=== PATIENT | female | born 1955 ===

== ENCOUNTER 2016-10-22 09:54 | Emergency (ER) | payer MEDICARE ==
[2016-10-22 09:54] VITALS: BMI 33.9
[2016-10-22 10:03] VITALS: TEMP 98.2
--- NOTE | 2016-10-22 12:03 | C.PDOC ---
History Of Present Illness 61 year old female presents to the ED with complaints of right thigh discomfort for the past 3-4 days. Patient states her right thigh feels hot and subjectively swollen and notes the pain is worse at night. Denies injury, fall, fever, rash, or any other complaints at this time. Chief Complaint (Nursing): Lower Extremity Problem/Injury History Per: Patient History/Exam Limitations: no limitations Onset/Duration Of Symptoms: Days Current Symptoms Are (Timing): Still Present Severity: Mild Past Medical History Reviewed: Historical Data, Nursing Documentation, Vital Signs Vital Signs: Last Vital Signs Temp 98.2 F 10/22/16 10:02 Pulse 57 L 10/22/16 12:58 Resp 17 10/22/16 12:58 BP 152/84 H 10/22/16 12:58 Pulse Ox 99 10/22/16 14:35 - Medical History PMH: Anxiety, Arthritis (KNEES AND HANDS), Depression, HTN Surgical History: Endoscopy - [facility] Procedures RADICAL EXCIS SKIN LES (01/29/14) Family History: States: Unknown Family Hx - Social History Hx Tobacco Use: No Hx Alcohol Use: No Hx Substance Use: No - Immunization History Hx Tetanus Toxoid Vaccination: No Hx Influenza Vaccination: No Hx Pneumococcal Vaccination: No Review Of Systems Except As Marked, All Systems Reviewed And Found Negative. Constitutional: Negative for: Fever, Chills Musculoskeletal: Positive for: Leg Pain (+Right thigh discomfort). Negative for : Back Pain Skin: Negative for: Rash Neurological: Negative for: Weakness, Numbness Physical Exam - Physical Exam Appears: Non-toxic, No Acute Distress Skin: Normal Color, Warm, Dry Head: Atraumatic, Normacephalic Eye(s): bilateral: Normal Inspection Oral Mucosa: Moist Chest: Symmetrical Respiratory: No Accessory Muscle Use Back: No Vertebral Tenderness, No Paraspinal Tenderness Extremity: Normal ROM, Tenderness (+Slight tenderness to the right upper thigh) , No Calf Tenderness, Capillary Refill (< 2 seconds), No Deformity, No Swelling , Other (+Varicose vains to the right leg. ) Extremity: Right: Other (+Post-op scar to the right lower leg for unknown vascular issues.) Pulses: Left Dorsalis Pedis: Normal, Right Dorsalis Pedis: Normal Neurological/Psych: Oriented x3, Normal Speech, Normal Cognition, Normal Motor, Normal Sensation ED Course And Treatment O2 Sat by Pulse Oximetry: 99 (Room air) Pulse Ox Interpretation: Normal - Other Rad LS Spine AP/LAT X-Ray: Viewed By Me, Read By Radiologist Interpretation: Accession No. : [id number]. Patient Name / ID : SEPIDEH PAREDES / [id number]. Exam Date : 10/22/2016 10:38:09 ( Approved ). Study Comment : Sex / Age : F / 61Y. Creator : Tete Vilchis MD. Dictator : Tete Vilchis MD. House Servant : Internal Control Manager : Tete Vilchis MD. Approver2 : Report Date : 10/22/2016 14:03:50. My Comment : . PROCEDURE: Radiographs of the Lumbar Spine. HISTORY: Right thigh pain. COMPARISON: No prior. FINDINGS: BONES: There is normal alignment of the lumbar vertebral bodies. Lumbar lordosis is maintained. Vertebral bodies are normal in height. There is no acute fracture, spondylolysis or spondylolisthesis. Bone mineralization is normal. DISC SPACES: There is mild multilevel degenerative disc disease with anterior spurring, reduced disc heights and multilevel facet arthropathy, worse at L5-S1. OTHER FINDINGS: There are atherosclerotic aortoiliac calcifications. There are no pathologic soft tissue calcifications. Both sacroiliac joints are normal. IMPRESSION: No acute fracture, spondylolysis or spondylolisthesis. Mild multilevel degenerative disc disease, worse at L5-S1. Progress Note: Venous Duplex RLE and LS Spine AP/LAT ordered and reviewed. Duplex is negative for DVT. Patient was d/c home. Disposition - Disposition Disposition: HOME/ ROUTINE Disposition Time: 14:10 Condition: STABLE Additional Instructions: Follow up with PMD within 1-2 days. Return to Ed if feel worse. 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 - Scribe Statement The provider has reviewed the documentation as recorded by the Scribe Rolf Crespo. All medical record entries made by the Scribe were at my direction and personally dictated by me. I have reviewed the chart and agree that the record accurately reflects my personal performance of the history, physical exam, medical decision making, and the department course for this patient. I have also personally directed, reviewed, and agree with the discharge instructions and disposition.
[2016-10-22 12:59] VITALS: BP 152/84; PULSE 57; RESP 17
--- NOTE | 2016-10-22 14:05 | RAD ---
PROCEDURE: Radiographs of the Lumbar Spine. HISTORY: Right thigh pain COMPARISON: No prior. FINDINGS: BONES: There is normal alignment of the lumbar vertebral bodies. Lumbar lordosis is maintained. Vertebral bodies are normal in height. There is no acute fracture, spondylolysis or spondylolisthesis. Bone mineralization is normal. DISC SPACES: There is mild multilevel degenerative disc disease with anterior spurring, reduced disc heights and multilevel facet arthropathy, worse at L5-S1. OTHER FINDINGS: There are atherosclerotic aortoiliac calcifications. There are no pathologic soft tissue calcifications. Both sacroiliac joints are normal. IMPRESSION: No acute fracture, spondylolysis or spondylolisthesis. Mild multilevel degenerative disc disease, worse at L5-S1.
[2016-10-22 14:13] VITALS: O2SAT 99
--- NOTE | 2016-10-23 14:38 | VASCLAB ---
PROCEDURE: Right Lower Extremity Venous Duplex Exam. HISTORY: thigh pain/swelling PRIORS: None. TECHNIQUE: Right common femoral, femoral, popliteal and posterior tibial, peroneal and great saphenous veins were evaluated. Flow was assessed with color Doppler, compressibility, assessment of phasic flow and augmentation response. Report prepared by XU Cano, RVT FINDINGS: RIGHT: 1. Common Femoral Vein: 1.1. Compressibility - Fully compressible: Thrombus - None: Flow - Phasic: Augmentation -Normal: Reflux - None. 2. Femoral Vein: 2.1. Compressibility - Fully compressible: Thrombus - None: Flow - Phasic: Augmentation -Normal: Reflux - None. 3. Popliteal Vein: 3.1. Compressibility - Fully compressible: Thrombus - None: Flow - Phasic: Augmentation -Normal: Reflux - None. 4. Posterior Tibial Vein: 4.1. Compressibility - Fully compressible: Thrombus - None: Flow - Phasic: Augmentation -Normal: Reflux - None. 5. Peroneal Vein: 5.1. Compressibility - Fully compressible: Thrombus - None: Flow - Phasic: Augmentation -Normal: Reflux - None. 6. Great Saphenous Vein: 6.1. Compressibility - Fully compressible: Thrombus -None: Flow - Phasic: Augmentation - Normal: Reflux - Severe. OTHER FINDINGS: IMPRESSION: No evidence of deep or superficial vein thrombosis of the right lower extremity with excellent venous flow. Normal venous flow noted in the left common femoral vein.
== END 2016-10-22 14:18 | disposition home or self-care (01) ==
LOC: C.ER 09:54
DX: M54.16 Radiculopathy, lumbar region (principal)

== ENCOUNTER 2018-06-18 05:37 | Emergency (ER) | payer MEDICARE ==
[2018-06-18 05:37] VITALS: BMI 33.9
[2018-06-18] MEDS ORDERED: Sodium Chloride 0.9% 1,000 ML IV ONE (05:57)
[2018-06-18] MEDS ORDERED: DiphenhydrAMINE 50 mg/ml Inj IVP STA (05:59)
--- NOTE | 2018-06-18 06:04 | C.PDOC ---
History Of Present Illness 63 year old female patient presents to the emergency room complaining of headache for two days. Patient reports the headache got worse at around 1 am. Patient also reports pain radiated from the front to the back. Associated symptoms includes sensitivity to light and nausea. Patient denies fever, chills, vomiting, change in vision and neck pain. Time Seen by Provider: 06/18/18 05:54 Chief Complaint (Nursing): Headache History Per: Patient History/Exam Limitations: no limitations Onset/Duration Of Symptoms: Days (x2) Current Symptoms Are (Timing): Worse Severity: Moderate Associated Symptoms: Photophobia, Nausea Past Medical History Reviewed: Historical Data, Nursing Documentation, Vital Signs Vital Signs: Last Vital Signs Temp 97.6 F 06/18/18 05:48 Pulse 68 06/18/18 05:48 Resp 16 06/18/18 05:48 BP 169/85 H 06/18/18 05:48 Pulse Ox 98 06/18/18 05:48 - Medical History PMH: Anxiety, Arthritis (KNEES AND HANDS), Depression, HTN Surgical History: Endoscopy - [facility] Procedures INJECT/INFUSE NEC (12/14/05) RADICAL EXCIS SKIN LES (01/29/14) Family History: States: Unknown Family Hx - Social History Hx Tobacco Use: No Hx Alcohol Use: No Hx Substance Use: No - Immunization History Hx Tetanus Toxoid Vaccination: No Hx Influenza Vaccination: No Hx Pneumococcal Vaccination: No Review Of Systems Constitutional: Negative for: Fever, Chills Eyes: Positive for: Other (sensitive to light). Negative for: Vision Change Gastrointestinal: Positive for: Nausea. Negative for: Vomiting Musculoskeletal: Negative for: Neck Pain Neurological: Positive for: Headache. Negative for: Dizziness Physical Exam - Physical Exam Appears: Well, Non-toxic, No Acute Distress Skin: Warm, Dry, No Rash Head: Atraumatic, Normacephalic Eye(s): bilateral: PERRL, EOMI, Photophobia Oral Mucosa: Moist Throat: Normal Neck: Normal ROM Chest: Symmetrical Cardiovascular: Rhythm Regular, No Murmur Respiratory: Normal Breath Sounds, No Rales, No Rhonchi, No Wheezing Extremity: Bilateral: Atraumatic, Normal ROM Neurological/Psych: Oriented x3, Normal Speech, Normal Cranial Nerves, No Cerebellar Signs, No Other (focal deficit) Gait: Steady ED Course And Treatment O2 Sat by Pulse Oximetry: 98 (RA) Pulse Ox Interpretation: Normal Medical Decision Making Medical Decision Making: Impression: Headache Plan: -- benadryl -- imitrex -- reglan -- IV fluids Progress: Patient treated with analgesics and observed in ED. She remained afebrile with normal neuro exam. Neck supple and no complaints of dizziness, vision changes, numbness or weakness. Patient stable for discharge. Disposition Counseled Patient/Family Regarding: Diagnosis, Need For Followup, Rx Given - Disposition Referrals: Mercedez Burrows MD [Staff Provider] - Disposition: HOME/ ROUTINE Disposition Time: 06:40 Condition: STABLE Additional Instructions: [place] medicamentos para dolor porfirio necessario Vaya a carballo medico para mas evaluacion Regrese al hospital si el dolor persiste o sientes peor Prescriptions: Acetaminophen/Butalbital/Caf [Fioricet] 1 tab PO TID PRN #20 tab PRN Reason: Headache Ibuprofen [Motrin] 600 mg PO Q8 #30 tab SUMAtriptan [Imitrex] 1 tab PO PRN PRN #12 tab PRN Reason: Headache Instructions: Migraine Headache (DC) Print Language: CONGOLESE - POA Present On Arrival: None - Clinical Impression Clinical Impression: Migraine - 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 - Scribe Statement The provider has reviewed the documentation as recorded by the Raf Zaragoza Do All medical record entries made by the Scribe were at my direction and personally dictated by me. I have reviewed the chart and agree that the record accurately reflects my personal performance of the history, physical exam, medical decision making, and the department course for this patient. I have also personally directed, reviewed, and agree with the discharge instructions and disposition.
[2018-06-18] MEDS ORDERED: Sodium Chloride 0.9% 1,000 ML ONE (06:06)
[2018-06-18] MEDS ORDERED: DiphenhydrAMINE 50 mg/ml Inj ONE (06:10)
[2018-06-18 07:58] VITALS: BP 145/78; PULSE 65; RESP 20; TEMP 97.8
[2018-06-18 21:25] VITALS: O2SAT 98
== END 2018-06-18 08:07 | disposition home or self-care (01) ==
LOC: C.ER 05:37
DX: G43.909 Migraine, unspecified, not intractable, without status migrainosus (principal); I10 Essential (primary) hypertension
CPT/HCPCS: 96361; 96374; 96375; 99285; J1200; J2765; J7030